=== PATIENT | female | born 1985 | race Two or more races ===

== ENCOUNTER 2019-06-26 10:31 | Emergency (ER) | payer MEDICAID ==
[~2019-06-26] VITALS: Ht 165.1 cm; Wt 59.0 kg
--- NOTE | 2019-06-26 11:00 | NUR ---
PT WAS EVALUATED BY DR NOLASCO. PT WAS D/C'D TO HOME. D/C INSTRUCTIONS GIVEN TO THE PT.
[2019-06-26 11:01] VITALS: BP 129/71
== END 2019-06-26 11:01 | disposition home or self-care (01) ==
LOC: ER 10:31
DX: L01.00 Impetigo, unspecified (principal)
CPT/HCPCS: A4663

== ENCOUNTER 2021-02-15 23:23 | Emergency (ER) | payer MEDICAID, OTHER ==
[~2021-02-15] VITALS: Ht 165.1 cm; Wt 62.6 kg
[2021-02-15 23:40] LABS: *BILIRUBIN,URIN NEGATIVE (NEGATIVE); *KETONES,URINE NEGATIVE (NEGATIVE); *UROBILINOGEN,URINE 0.2 E.U./dl (NORMAL); LEUKOCYTE ESTERASE ,URINE TRACE (NEGATIVE); NITRITE, URINE NEGATIVE (NEGATIVE); PH,URINE 6.5 (5.0-8.0); UGLUCOSE NEGATIVE (NEGATIVE)
[2021-02-15 23:48] LABS: *BLOOD, URINE TRACE (NEGATIVE); *CLARITY,URINE HAZY (CLEAR)
[2021-02-15 23:49] LABS: *COLOR,URINE STRAW (YELLOW); *URINE HCG, QUAL NEGATIVE (NEGATIVE); BACTERIA,URINE MODERATE /HPF (NONE SEEN); SQUAMOUS EPITHELIAL CELL,UR MODERATE /HPF (NONE SEEN)
[2021-02-16] MEDS ORDERED: PHEN-705 PO (00:19)
[2021-02-16] MEDS ORDERED: SULF1TAB48 PO (00:19)
--- NOTE | 2021-02-16 00:28 | NUR ---
Patient discharged to home in stable condition. Written and verbal after care instructions given. Patient verbalizes understanding of instructions. Stressed follow up or return to ER for worsening s/s.
== END 2021-02-16 00:28 | disposition home or self-care (01) ==
LOC: ER 23:23
DX: N30.90 Cystitis, unspecified without hematuria (principal); Z88.0 Allergy status to penicillin
CPT/HCPCS: 84703; 87086; A4663

== ENCOUNTER 2022-01-19 19:14 | Emergency (ER) | payer BC, OTHER ==
[~2022-01-19 19:14] MED LIST: PHEN-705 PO; SULF1TAB48 PO
--- NOTE | 2022-01-19 19:20 | NUR ---
Collected urine specimen from patient and sent to lab for UA.
[2022-01-19 19:38] LABS: *BILIRUBIN,URIN NEGATIVE (NEGATIVE); *COLOR,URINE YELLOW (YELLOW); *KETONES,URINE NEGATIVE (NEGATIVE); *UROBILINOGEN,URINE 0.2 E.U./dl (NORMAL); LEUKOCYTE ESTERASE ,URINE 3+ (NEGATIVE); NITRITE, URINE NEGATIVE (NEGATIVE); PH,URINE 6.5 (5.0-8.0); UGLUCOSE NEGATIVE (NEGATIVE)
[2022-01-19 19:43] LABS: *BLOOD, URINE TRACE (NEGATIVE)
[2022-01-19 19:44] LABS: *CLARITY,URINE HAZY (CLEAR)
[2022-01-19 19:47] LABS: BACTERIA,URINE MODERATE /HPF (NONE SEEN); SQUAMOUS EPITHELIAL CELL,UR FEW /HPF (NONE SEEN); WBC,URINE 50-80 /HPF (0-3)
[2022-01-19 19:51] LABS: *URINE HCG, QUAL NEGATIVE (NEGATIVE)
--- NOTE | 2022-01-19 20:10 | NUR ---
Patient was called to be triaged but was not present in the waiting room or outside of ER.
--- NOTE | 2022-01-19 21:00 | NUR ---
Patient was called to be triaged but was not present in the waiting room or outside of ER.
--- NOTE | 2022-01-19 22:00 | NUR ---
Patient was not triaged or seen by ERMD.
[2022-01-20] MEDS ORDERED: DOXY-226 PO (19:50)
[2022-01-20] MEDS ORDERED: METR500T PO (19:50)
== END 2022-01-19 22:00 | disposition left against medical advice (07) ==
LOC: ER 19:19
DX: R39.9 Unspecified symptoms and signs involving the genitourinary system (principal)
CPT/HCPCS: 84703; 87086

== ENCOUNTER 2022-01-20 17:44 | Emergency (ER) | payer OTHER ==
[~2022-01-20] VITALS: Ht 165.1 cm; Wt 62.6 kg
--- NOTE | 2022-01-20 19:00 | NUR ---
Assumed care of patient from day shift RN
--- NOTE | 2022-01-20 19:40 | NUR ---
Dr. Eli on bedside for MSE.
[2022-01-20] MEDS ORDERED: CEFTRIAXONE 500 MG VIAL IM ONE (19:45)
[2022-01-20] MEDS ORDERED: CEFTRIAXONE 500 MG VIAL ONE (19:47)
[2022-01-20] MEDS ORDERED: LIDOCAINE HCL 1% 20 ML VIAL ONE (19:50)
[2022-01-20] MEDS ORDERED: DOXY-226 PO (19:50)
[2022-01-20] MEDS ORDERED: METR500T PO (19:50)
--- NOTE | 2022-01-20 20:00 | NUR ---
Patient discharged to home in stable condition. Written and verbal after care instructions given. Patient verbalizes understanding of instructions. Stressed follow up or return to ER for worsening s/s. Patient ambulated fr the ER with steady gait. All belongings with patient.
[2022-01-20 20:09] VITALS: BP 111/78
[2022-01-20 20:49] LABS: *BILIRUBIN,URIN NEGATIVE (NEGATIVE); *BLOOD, URINE TRACE (NEGATIVE); *CLARITY,URINE CLOUDY (CLEAR); *COLOR,URINE YELLOW (YELLOW); *KETONES,URINE NEGATIVE (NEGATIVE); *UROBILINOGEN,URINE 0.2 E.U./dl (NORMAL); LEUKOCYTE ESTERASE ,URINE 2+ (NEGATIVE); NITRITE, URINE NEGATIVE (NEGATIVE); UGLUCOSE NEGATIVE (NEGATIVE)
[2022-01-20 20:50] LABS: *URINE HCG, QUAL NEGATIVE (NEGATIVE)
[2022-01-20 20:56] LABS: BACTERIA,URINE MODERATE /HPF (NONE SEEN); SQUAMOUS EPITHELIAL CELL,UR FEW /HPF (NONE SEEN); WBC,URINE 50-80 /HPF (0-3)
== END 2022-01-20 20:00 | disposition home or self-care (01) ==
LOC: ER 17:44
DX: N39.0 Urinary tract infection, site not specified (principal); N76.0 Acute vaginitis; Z87.440 Personal history of urinary (tract) infections
CPT/HCPCS: 99283; 81001; 84703; 87086; 96372; J0696; J3490; A4663